=== PATIENT | female | born 1980 | race Caucasian/White ===

== ENCOUNTER 2019-09-06 15:43 | Emergency (ER) | payer BC, OTHER ==
[~2019-09-06] VITALS: Ht 165.1 cm; Wt 110.2 kg
[2019-09-06 15:53] VITALS: BP_SYST 151
--- NOTE | 2019-09-06 16:02 | NUR ---
urine collected and sent to lab. Pt in the waiting room
[2019-09-06 16:24] LABS: BILIRUBIN,URINE NEGATIVE (NEGATIVE); BLOOD, URINE NEGATIVE (NEGATIVE); CLARITY/URINE CLEAR (CLEAR); COLOR,URINE YELLOW (YELLOW); GLUCOSE,URINE NEGATIVE (NEGATIVE); KETONES,URINE NEGATIVE (NEGATIVE); LEUKOCYTE ESTERASE ,URINE TRACE (NEGATIVE); NITRITE, URINE NEGATIVE (NEGATIVE); PH,URINE 6.5 (5.0-8.0); PROTEIN URINE NEGATIVE (NEGATIVE); UROBILINOGEN,URINE 0.2 (0.2-1.0)
[2019-09-06 16:55] LABS: BACTERIA,URINE FEW /HPF (None Seen); RBC,URINE NONE SEEN /HPF (0-3)
[2019-09-06 16:57] LABS: MUCUS,URINE None Seen /LPF (None Seen)
--- NOTE | 2019-09-06 17:37 | NUR ---
Patient to ER chair 1 for evaluation. Side rails up.
--- NOTE | 2019-09-06 17:40 | NUR ---
Patient brought in complaining of lower abdominal pain starting 1 week ago. Patient reports was prescribed Cipro for UTI 1 week ago. Patient reports that she is still having dysuria. No other complaints/injuries per patient or as noted. Will continue to monitor.
--- NOTE | 2019-09-06 17:43 | NUR ---
ER at bedside examining patient.
[2019-09-06 17:49] VITALS: BP_SYST 137
--- NOTE | 2019-09-06 17:49 | NUR ---
Patient given written and verbal discharge instructions and verbalizes understanding. ER MD discussed with patient the results and treatment provided. Patient in stable condition. ID arm band removed. Rx of Macrobid given. Patient educated on pain management and to follow up with PMD. Pain Scale 0/10 Opportunity for questions provided and answered. Medication side effect fact sheet provided.
== END 2019-09-06 17:49 | disposition home or self-care (01) ==
LOC: SED 15:43
DX: N39.0 Urinary tract infection, site not specified (principal); F41.9 Anxiety disorder, unspecified; Z88.8 Allergy status to other drugs, medicaments and biological substances
CPT/HCPCS: 81000-TC; 87086; 99283

== ENCOUNTER 2021-02-18 08:31 | Emergency (ER) | payer SELFPAY ==
[~2021-02-18] VITALS: Ht 165.1 cm; Wt 117.9 kg
[2021-02-18 08:34] VITALS: BP_SYST 149
--- NOTE | 2021-02-18 08:34 | NUR ---
Placed in room 4 . Placed on panel monitor, blood pressure machine and pulse oximeter. To gown for exam. Side rails up. Report given to BI HAMEDE.
--- NOTE | 2021-02-18 08:35 | NUR ---
Report received from Dede PAT. Per report received, patient reporting sharp, radiating to L side chest pain. PMH HTN and DM. Patient anxious upon RN face to face. Placed on air sampling and monitoring. VSS. Will continue to monitor.
--- NOTE | 2021-02-18 08:36 | NUR ---
EKG being completed at bedside
--- NOTE | 2021-02-18 08:45 | NUR ---
# 20 gauge angiocath placed to R AC. Use of asceptic technique. Opsite placed over site. Blood return noted. Blood for lab drawn from site. Flushed with 10 cc of normal saline. No evidence of infiltration noted. Patient tolerated well.
--- NOTE | 2021-02-18 08:50 | NUR ---
RN informed Dr John of patient's reported pain level. No new orders received
[2021-02-18 09:32] LABS: EOSINOPHILS # (AUTO) 0.3 K/uL (0.0-0.4); EOSINOPHILS % (AUTO) 2.8 % (0.0-4.0); HEMATOCRIT 43.9 % (36-48); HEMOGLOBIN 14.9 g/dL (12.0-16.0); LYMPHOCYTES # (AUTO) 3.1 K/uL (1.0-5.5); LYMPHOCYTES % (AUTO) 28.9 % (20.5-51.5); MEAN CORPUSCULAR HEMOGLOBIN 29 pg (27-31); MEAN CORPUSCULAR HGB CONC 34 % (32-36); MEAN CORPUSCULAR VOLUME 86 fL (79.0-98.0); MONOCYTES # (AUTO) 0.8 K/uL (0.0-1.0); MONOCYTES % (AUTO) 7.6 % (1.7-9.3); PLATELET COUNT (AUTO) 255 K/uL (130-430); RED BLOOD CELL COUNT(AUTO) 5.13 MIL/uL (4.2-6.2); RED CELL DISTRIBUTION WIDTH 13.6 % (9.0-15.0); WHITE BLOOD COUNT (AUTO) 10.6 K/uL (4.8-10.8)
[2021-02-18 09:35] LABS: BASOPHILS % (AUTO) 0.7 % (0.0-2.0)
[2021-02-18 09:36] LABS: BASOPHILS # (AUTO) 0.1 K/uL (0.0-0.2); NEUTROPHILS # (AUTO) 6.4 K/uL (1.8-7.7)
[2021-02-18 09:37] LABS: ANION GAP 8 (5-15); CALCIUM 9.2 mg/dL (8.4-11.0); CHLORIDE 101 mmol/L (98-107); GLUCOSE 112 mg/dL (70-99); POTASSIUM 4.3 mmol/L (3.5-5.1); SODIUM SERUM 138 mmol/L (136-145); UREA NITROGEN, BLOOD 11 mg/dL (8-21)
--- NOTE | 2021-02-18 09:37 | NUR ---
CXR being completed at bedside
[2021-02-18 09:41] LABS: GFR AFRICAN AMERICAN 90 mL/min (>90)
[2021-02-18 09:58] LABS: ALANINE AMINOTRANSFERASE 29 U/L (12-78); ALBUMIN 3.8 g/dL (3.4-4.8); ASPARTATE AMINOTRANSFERASE 15 U/L (10-37); TOTAL BILIRUBIN 0.8 mg/dL (0.0-1.0)
--- NOTE | 2021-02-18 10:15 | NUR ---
Patient made aware of needing a urine sample earlier. Resting in bed; in no acute distress. Medications pending UPT. Dr John aware.
[2021-02-18] MEDS: KETOROLAC TROMETHAMINE 30 MG VIAL IVP ONE (10:32)
--- NOTE | 2021-02-18 11:31 | NUR ---
Patient's mother at bedside; updated re plan of care moving forward. Understanding verbalized. Second troponin to be drawn at 12.
--- NOTE | 2021-02-18 12:00 | NUR ---
Second troponin collected per RN; sent to lab. Dr John informed.
[2021-02-18 13:38] VITALS: BP_SYST 147
--- NOTE | 2021-02-18 13:39 | NUR ---
Patient given written and verbal discharge instructions and verbalizes understanding. ER MD discussed with patient the results and treatment provided. Patient in stable condition. ID arm band removed. IV catheter removed intact and dressing applied, no active bleeding. Patient educated on pain management and to follow up with PMD. Pain scale 0/10. Opportunity for questions provided and answered.
== END 2021-02-18 13:38 | disposition home or self-care (01) ==
LOC: SED 08:31
DX: R07.89 Other chest pain (principal); I10 Essential (primary) hypertension; F32.9 Major depressive disorder, single episode, unspecified; F41.9 Anxiety disorder, unspecified; Z88.8 Allergy status to other drugs, medicaments and biological substances
CPT/HCPCS: 36415; 71045; 80053; 84484; 84702; 85025; 93005; 96374; 99285; J1885